=== PATIENT | male | born 1945 | race Caucasian/White ===

== ENCOUNTER 2016-08-12 05:41 | Observation (INO) | payer OTHER, MEDICARE ==
[2016-07-16 11:56] VITALS: BMI 28.2
[2016-08-12] MEDS ORDERED: REMIFENTANIL HCL 2,000 MCG VIAL IV ONE (06:56)
[2016-08-12] MEDS ORDERED: LABETALOL 20 MG/4 ML SYRINGE IV PRN (06:57)
[2016-08-12] MEDS ORDERED: HYDROmorphone 1 MG INJECTION IV PRN ×3 (06:57→10:37)
[2016-08-12] MEDS ORDERED: hydrALAZINE 20 MG/ML VIAL IV PRN (06:57)
[2016-08-12] MEDS ORDERED: ONDANSETRON HCL 4 MG/2 ML VIAL IV PRN (06:57)
[2016-08-12] MEDS ORDERED: ONDANSETRON HCL 4 MG ODT TAB PO PRN (06:57)
[2016-08-12] MEDS ORDERED: MEPERIDINE 25 MG/ML TUBEX IV PRN (06:57)
[2016-08-12] MEDS ORDERED: FENTANYL 100 MCG/2 ML VIAL IV PRN (06:57)
[2016-08-12] MEDS ORDERED: PROMETHAZINE 25 MG/ML VIAL IV PRN (06:57)
[2016-08-12] MEDS ORDERED: CEFAZOLIN 1 GM VIAL ONE (06:59)
--- NOTE | 2016-08-12 06:59 | SC.ANESPOS ---
Post-Anesthesia Note LOC: [facility] Post-Anesthesia Assessment: Awake, Returned to Baseline, Hemodynamically Stable , Pain Control Adequate Phase I & II Recovery Complete: Yes Apparent Anesthesia Complication: No : N - Vital Signs Blood Pressure: 106/76 Pulse: 82 Resp Rate: 18 O2 Sat: 95 Temp: 97.8 F
--- NOTE | 2016-08-12 07:00 | HIM.ANES ---
Anesthesia Evaluation & Plan Diagnoses: SPINAL STENOSIS, CERVICAL REGION (08/12/16) RADICULOPATHY, CERVICAL REGION (08/12/16) Consented Procedure: CERVICAL 4-5,5-6,6-7 WITH FUSION - Focused Review of Systems Cardiac History: Yes: Hx Cardiac Disorders, Hx Abnormal Cholesterol/ Hyperlipidemia HEENT: Yes: Hx Vision Problem (wears glasses), Other HEENT Problems Respiratory: Yes: Hx Snoring No: Hx Pneumonia Gastrointestinal: Yes: Hx Gastroesophageal Reflux Disease (rare since weight loss/controlled), Hx Gastrointestinal Disorders, Hx Diverticulosis, Hx Colonoscopy (07/16/2016 [facility]) Neurological/Musculoskeletal: Yes: Hx Back Pain (NECK), Hx Numbness, Tingling, Weakness in Arms & Legs (left arm from neck issues), Hx Neurological Disorders Other Neurological Problems: CERVICALGIA Psychological: Yes Hx Depression (RESOLVED), No Hx Mental/Emotional Disorders Endocrine: Yes: Hx Non-Insulin Dependent Diabetes Blood/Autoimmune: No: Hx Blood Transfusions, Hx AIDS, Hx Hepatitis (type) Smoking Status: Former smoker Surgical History: Yes: Knee (compound fx staple to knee as a child) Other Surgical History: PROSTATECTOMY 02/02/2003, SCAR TISSUE REMOVED FROM URETHRA 02/23/2004, - Focused Physical Exam NPO since: 08/11/16 2 Mallampati: Class III Thyromental Distance: Greater than 3 Neck: Limited Range of Motion Dental: Normal - no significant findings Cardiovascular/Chest: Normal Respiratory: Lungs clear Any problems with anesthesia, including nausea and vomiting?: No Any relatives with a history of Malignant Hyperthermia?: No Beta Andrea given (if appropriate): N/A Does the patient have a history of Motion Sickness-: No Other: Allergies Allergy/AdvReac Type Severity Reaction Status Date / Time No Known Allergies Allergy Verified 08/12/16 06:35 Home Medications Medication Instructions Recorded Last Taken Type Aspirin [Aspirin EC] 81 mg PO DAILY 07/15/16 08/05/16 History Dapagliflozin Propanediol [Farxiga] 10 mg PO DAILY 07/15/16 08/11/16 06:30 History Acetaminophen [Arthritis Pain] 650 mg PO Q4-6H PRN 07/18/16 08/09/16 History Atorvastatin Calcium [Lipitor] 10 mg PO DAILY 07/18/16 08/11/16 06:30 History Ibuprofen Tablet [Advil] 400 mg PO Q6-8H PRN 07/18/16 07/29/16 History Height and Weight Patient's height 5 ft 6 in Patient's weight 175 lb BMI 28.2 Vital Signs Temperature 97.8 F 08/12/16 06:59 Pulse Rate 82 08/12/16 06:59 Respiratory Rate 18 08/12/16 06:59 Blood Pressure 106/76 08/12/16 06:59 Pulse Oxygen Saturation 95 08/12/16 06:59 - Anesthetic Plan Anesthesia Type: General ASA Class: 3 -: I have examined this patient and reviewed the medical record. The patient has been assessed prior to anesthesia. Risks and benefits of anesthesia and anesthetic technique options have been discussed and all questions answered. The patient accepts the risk and desires me to proceed with the planned anesthetic.
[2016-08-12] MEDS ORDERED: TRIAMCINOLONE 40 MG/ML VIAL ONE (07:05)
[2016-08-12] MEDS ORDERED: Aluminum;Magnesium;Simethicone 30 ML UDC PO PRN (10:37)
[2016-08-12] MEDS ORDERED: MAGNESIUM HYDROXIDE 30 ML BOTTLE PO PRN (10:37)
[2016-08-12] MEDS ORDERED: DIPHENHYDRAMINE 25 MG CAP PO PRN (10:37)
[2016-08-12] MEDS ORDERED: DIPHENHYDRAMINE 50 MG/ML VIAL IV PRN (10:37)
[2016-08-12] MEDS ORDERED: SODIUM CHLORIDE 0.9% 3 ML FLUSH FLUSH PRN (10:37)
--- NOTE | 2016-08-12 10:38 | HIMOPRPT ---
DATE OF PROCEDURE: 08/12/16 PREOPERATIVE DIAGNOSIS: 1- Cervical degenerative disc disease C4-5, C5-6, C6-7 2- bilateral Upper extremity radicular pain POSTOPERATIVE DIAGNOSIS: 1- Cervical degenerative disc disease C4-5, C5-6, C6-7 2- bilateral Upper extremity radicular pain PROCEDURE PERFORMED: 1. Anterior cervical diskectomy, interbody arthrodesis C4-5 2. Anterior cervical diskectomy, interbody arthrodesis C5-6 3. Anterior cervical diskectomy, interbody arthrodesis C6-7 4. Anterior instrumentation C4-C7 5- Placement of interbody cage C4-5 . 6. Placement of interbody cage C5-6 7. Placement of interbody cage C6-7 SURGEON: Jermaine Jackman MD. KILN CHARGER: LUNA Spence] ANESTHESIA: General endotracheal Anesthesia. IV FLUIDS: Crystalloids ESTIMATED BLOOD LOSS: Minimal SPECIMENS: C4-5, C5-6, C6-7 disk. COMPLICATIONS: None. IMPLANTS: 1- Medtronic 8 hole cervical locking plate 2- Locking screws size 16 3- interbody cage 5 mm in height at C4-5, C5-6 and 6 mm height at C6-7 BRIEF HISTORY: LOVE MAYBERRY is a 71 year-old male patient . Patient had complaints of axial neck pain and bilateral upper extremity radicular pain. Patient had MRI evidence of cervical degenerative disc disease C4-5, C5-6, C6-7 with canal and foraminal stenosis . Patient had tried and failed conservative treatment including anti-inflammatory medication, activity modification, physical therapy, chiropractic treatment, cervical epidural steroid injection. Patient had difficulty in activities of daily living. Failing conservative treatment patient indicated the desire to proceed with surgical intervention. It was explained that infection, bleeding and were risks that accompanied any invasive procedure and that paralysis is a possible complication of any spine surgery. It was explained to the patient that other risks, including but not limited to seroma, hematoma, artery or vein injury, nerve damage, pain, weakness, numbness, tingling, or bladder dysfunction, incontinence, spinal fluid leak, nonunion, malunion, implant failure, loss of fixation, painful hardware, persistent symptoms, adjacent segment instability, adjacent segment degeneration, need for further surgery, sore throat, hoarseness, difficulty swallowing, Abby's syndrome, esophageal perforation, Tracheal injury, urine to retract infection, deep venous thrombosis, pulmonary embolism, pneumonia, ileus, ulcers, stroke, heartattack, and among others. It was explained that if he the patient had any reservation about any of these potential complications are if the risk of any of these complications occurring was unacceptable the patient should not undergo the procedure. Because he expressed understanding and chose to proceed as planned, the patient was taken to the operating room where the above listed procedure was performed. The patient volunteered an informed consent. The patient was seen on the day of surgery in the preop holding area. Surgical site was marked. The patient was then wheeled back into the operating room. DESCRIPTION OF THE PROCEDURE: The patient was seen and identified in the preop holding area. The surgical region was confirmed with the patient and initialed on the skin by the surgeon. The patient was then brought back to the operating room. The patient was transferred to the OSI flat table in the supine position and while still awake. The patient was positioned in a comfortable position. Patient then underwent induction of general endotracheal anesthesia without complication. Proper time out was performed confirming the identity of the patient and the planned procedure. His head and neck was maintained in excellent alignment during placement of endotracheal tube which was then stabilized.[A Cano catheter was placed as were sequential compression devices on both lower extremities, all of which were continued for the duration of the procedure. A well-padded bump was placed behind the shoulders to allow for very gentle cervical extension and optimal exposure to the anterior aspect of the neck. Shoulders were taped down to allow for better visualization of the cervical area . Intraoperative neurophysiologic monitoring was also employed for the duration of the procedure and monitoring leads were also placed. The anterior aspect of the neck was shaved smooth with clippers and cleanse thoroughly with alcohol. The surgical region was sealed off with plastic drapes. C-arm was brought in to identify the approximate surgical region,which was marked on the skin with a pen. The area was then prepped and draped in standard sterile fashion. The patient received 2 g of Ancef intravenously immediately preoperatively and within 30 min. of skin incision. We utilized a standard anterior approach to the cervical spine from a left- sided approach. A transverse incision was made in the skin to left of the midline. Bovie cautery was used for additional dissection and hemostasis through the subcutaneous tissue. The platysma was identified, mobilized, and then transected in line with the skin incision. Blunt dissection was then continued down to the deeper fascial layers. Each of these layers was first mobilized bluntly and then retracted carefully. The strap muscles, trachea, pharynx and esophagus were retracted towards midline, and the vascular structures retracted laterally. blunt dissection was then continued down to the prevertebral fascia exposing the anterior longitudinal ligament. A lateral C-arm image was then obtained to confirm the surgical level and the level was identified as C4-5. The longus coli muscles were elevated and mobilized bilaterally. Blunt self retaining retractors were then placed. Next we proceeded with the anterior discectomy and interbody arthrodesis for decompression of the canal at C4-5 . There was significant degeneration of the disc. The remaining portions of the disc were mobilized and resected in a piecemeal fashion using a combination of curettes, rongeurs and a high-speed bur. The disc was excised and osteophytes were resected laterally to the uncovertebral joints. This was also taken back to and through the annulus and posterior longitudinal ligament. The dura was identified and protected. No dural tears were encountered at any time during the procedure. Additional time was spent taking down some of the posterior osteophytes and particularly along the inferior aspect of the endplate of C4 and superior endplate of C5 . An angled curet was also used to undercut the posterior aspect of the vertebral bodies to allow for adequate decompression. Kerrison rongeur was also used for resection and some decompression of the foramina. The area was checked with a small narrow folk to ensure adequate decompression. The disc was irrigated on multiple occasions with copious amount of sterile normal saline. Epidural bleeding was managed with FloSeal. Next we placed Trenton pins at C4-C5 .Next we prepared for anterior interbody arthrodesis at C4-5 . The end plates of C4 and C5 were denuded of cartilage and exposing bleeding bone. We sized for a 5 millimeter size spacer. The center portion of this cage was packed with portions of local bone autograft. The cage was tamped into place gently. Final positioning was checked with lateral views on C-arm and felt to be satisfactory. The Trenton pins were then removed. Next we proceeded with the anterior discectomy and interbody arthrodesis for decompression of the canal at C5-6 . There was significant degeneration of the disc. The remaining portions of the disc were mobilized and resected in a piecemeal fashion using a combination of curettes, rongeurs and a high-speed bur. The disc was excised and osteophytes were resected laterally to the uncovertebral joints. This was also taken back to and through the annulus and posterior longitudinal ligament. The dura was identified and protected. No dural tears were encountered at any time during the procedure. Additional time was spent taking down some of the posterior osteophytes and particularly along the inferior aspect of the endplate of C5 and superior endplate of C6 . An angled curet was also used to undercut the posterior aspect of the vertebral bodies to allow for adequate decompression. Kerrison rongeur was also used for resection and some decompression of the foramina. The area was checked with a small narrow folk to ensure adequate decompression. The disc was irrigated on multiple occasions with copious amount of sterile normal saline. Epidural bleeding was managed with FloSeal. Next we placed Trenton pins at C5-6 .Next we prepared for anterior interbody arthrodesis at C5-6 . The end plates of C5 and C6 were denuded of cartilage and exposing bleeding bone. We sized for a 5 millimeter size spacer. The center portion of this cage was packed with portions of local bone autograft. The cage was tamped into place gently. Final positioning was checked with lateral views on C-arm and felt to besatisfactory. The Trenton pins were then removed. We then proceeded with anterior cervical diskectomy and interbody arthrodesis in a similar fashion at C6-7. At C6-7 we placed a size 6 mm interbody cage. Next we proceeded with the application of anterior instrumentation at C4-C7 . We used a [employer] 8 hole plate. This was aligned on the anterior aspect of the cervical spine. This was then affixed with 4 screws. All the screws had excellent purchase and then were tightened to the final torque beyond the capturing. Orthogonal views were obtained on Jacquelin and overall alignment and fixation were felt to be satisfactory. The wounds space was irrigated for a final time. A 1/8 inch Hemovac drain was placed deep within the wound space. We then prepared the wound for wound closure. The platysma fascia was reapproximated with Vicryl sutures as was the subcutaneous tissue. A Monocryl suture was used for the skin. Steri-Strips and sterile dressing was applied. Disposition: The patient was then transferred to his hospital bed in the supine position. The patient was awakened and extubated without complication. Patient was placed in cervical arthrosis. Upon awakening patient was able to demonstrate broad smoker function in the upper and lower extremities. Patient was then transferred to the postanesthesia care unit awake and in stable condition. No immediate complications were noted.
[2016-08-12] MEDS ORDERED: DEXTROSE 25 GM/50 ML PFS IV PRN (10:40)
[2016-08-12] MEDS ORDERED: GLUCOSE (ORAL GEL) 15 GM TUBE PO PRN (10:40)
[2016-08-12] MEDS ORDERED: GLUCAGON 1 MG VIAL SQ PRN (10:40)
[2016-08-12] MEDS ORDERED: FENTANYL 100 MCG/2 ML VIAL ONE (10:45)
[2016-08-12] MEDS: FENTANYL 100 MCG/2 ML VIAL IV PRN ×2 (10:47→11:04)
[2016-08-12] MEDS ORDERED: NALOXONE 0.4 MG/ML AMPULE IV SCH (11:00)
[2016-08-12] MEDS ORDERED: Pharmacy Discontinue All Previous Acetaminophen Orders SCH (11:00)
[2016-08-12] MEDS ORDERED: HYDROmorphone 1 MG INJECTION ONE (11:11)
[2016-08-12] MEDS: HYDROmorphone 1 MG INJECTION IV PRN ×2 (11:15→11:33)
[2016-08-12] MEDS ORDERED: LABETALOL 5 MG/ML MDV IV ONE (11:28)
[2016-08-12] MEDS ORDERED: EPHEDrine 50 MG/ML VIAL IM ONE (11:28)
[2016-08-12] MEDS ORDERED: FENTANYL 100 MCG/2 ML VIAL IV ONE (11:28)
[2016-08-12] MEDS ORDERED: SUCCINYLCHOLINE 20 MG/1 ML INJ 10 ML MDV IV ONE (11:28)
[2016-08-12] MEDS ORDERED: LIDOCAINE 100 MG PFS IV ONE (11:28)
[2016-08-12] MEDS ORDERED: METOCLOPRAMIDE 10 MG/2 ML VIAL IV ONE (11:28)
[2016-08-12] MEDS ORDERED: DEXAMETHASONE 4 MG/ML VIAL IV ONE (11:28)
[2016-08-12] MEDS ORDERED: ONDANSETRON HCL 4 MG/2 ML VIAL IV ONE (11:28)
[2016-08-12] MEDS ORDERED: hydrALAZINE 20 MG/ML VIAL IM ONE (11:28)
[2016-08-12] MEDS ORDERED: PROPOFOL 200 MG/20 ML VIAL IV ONE (11:28)
[2016-08-12] MEDS ORDERED: MIDAZOLAM 2 MG/2 ML VIAL IV ONE (11:28)
[2016-08-12] MEDS ORDERED: VITAMINS, MULTIPLE CAP PO SCH (12:00)
[2016-08-12] MEDS: REGULAR INSULIN 100 UNITS/ML - 3 ML VIAL SQ SCH ×3 (12:52→21:05)
[2016-08-12] MEDS: CALCIUM CARBONATE + VITAMIN D 500 MG TAB PO SCH ×2 (12:53→18:06)
[2016-08-12] MEDS: ACETAMINOPHEN 325 MG/TAB TABLET PO SCH ×3 (12:53→23:00)
[2016-08-12] MEDS: ONDANSETRON HCL 4 MG/2 ML VIAL IV SCH ×3 (13:23→23:01)
[2016-08-12] MEDS: Cefazolin 2gm/50 ml D5W 2 GM/50 ML RTU IV SCH ×2 (13:25→20:14)
[2016-08-12] MEDS: OXYCODONE HCL 5 MG TABLET PO SCH ×3 (13:31→23:00)
[2016-08-12] MEDS ORDERED: Vaccine Screening Complete SCH (16:00)
[2016-08-12] MEDS: SODIUM CHLORIDE 0.9% 3 ML FLUSH FLUSH SCH (18:07)
[2016-08-12] MEDS: OXYCODONE (OxyCONTIN) 10 MG TAB PO SCH (20:14)
[2016-08-12] MEDS ORDERED: DOCUSATE-SENNA CONCENTRATE TAB PO SCH (21:00)
[2016-08-13] MEDS: Cefazolin 2gm/50 ml D5W 2 GM/50 ML RTU IV SCH (03:21)
[2016-08-13] MEDS: OXYCODONE HCL 5 MG TABLET PO SCH ×3 (03:21→09:38)
[2016-08-13] MEDS: ONDANSETRON HCL 4 MG/2 ML VIAL IV SCH (06:00)
[2016-08-13] MEDS: SODIUM CHLORIDE 0.9% 3 ML FLUSH FLUSH SCH (06:01)
[2016-08-13] MEDS: ACETAMINOPHEN 325 MG/TAB TABLET PO SCH (06:01)
[2016-08-13] MEDS: REGULAR INSULIN 100 UNITS/ML - 3 ML VIAL SQ SCH (06:05)
[2016-08-13 06:20] VITALS: BP 142/97; PULSE 86; TEMP 98.2
[2016-08-13] MEDS ORDERED: DAPAGLIFLOZIN PROPANEDIOL 5 MG PO SCH (07:00)
[2016-08-13 07:20] LABS: MPV 7.9 fL (7.4-10.4)
[2016-08-13 07:40] LABS: BLOOD UREA NITROGEN 19 MG/DL (9-20); CALCIUM 9.8 MG/DL (8.4-10.2); CALCULATED OSMOLALITY 275 MOs/Kg (270-290); GLUCOSE 133 MG/DL (70-99); SODIUM LEVEL 141 mEq/L (137-146)
[2016-08-13 08:16] LABS: CHLORIDE 104 mEq/L (98-107)
[2016-08-13] MEDS ORDERED: ATORVASTATIN 10 MG TAB PO SCH (09:00)
--- NOTE | 2016-08-13 09:21 | PCM.ORTHBL ---
- Subjective Post Op Day: 1 Daily Assessment - Patient: Reports: No new complaints, Awake Alert Oriented x4 , Feels better, Tolerating Regular Diet, Voiding without difficulty, Afebrile, Ambulating with Physical Therapist. Denies: Hoarseness of voice, Difficulty Swallowing (improved since yesterday), Shortness of breath, Nausea, Vomiting - Objective / Physical Exam Vital Signs: Temperature: 98.2 F (08/13/16 06:00) HR: 86 (08/13/16 06:00)RR: 18 (08/13/16 06: 00) BP: 142/97 (08/13/16 06:00)Pulse Ox: 96 (08/13/16 06:00) General: Alert, Oriented x3, Cooperative, No acute distress, Well appearing Musculoskeletal / Extremities: 2 plus Radial Pulse, 2 plus Dorsalis Pedis Pulse , Dressing Clean/Dry/Intact, Other (Good fabricator artificial breast strength, equal bilaterally) Neurological: Positive Sensation First Dorsal Web Space, Sensation to light touch intact (UE and LE), Extensor Hallicus Longus Intact, Flexor Hallicus Longus Intact, Dorsiflexion Intact, Plantarflexion Intact Laboratory/Diagnostics Reviewed: 08/13/16 06:56 08/13/16 06:56 - Assessment and Plan (1) Degenerative disc disease, cervical Acute M50.30 - OTHER CERVICAL DISC DEGENERATION, UNSP CERVICAL REGION Present on Admission: Yes Plan: POD#1 s/p ACDF C4-C7 PT/WBAT Continue cervical collar, ok to loosen while in bed Continue pain management D/c plan for home
[2016-08-13] MEDS: OXYCODONE (OxyCONTIN) 10 MG TAB PO SCH (09:38)
--- NOTE | 2016-08-13 10:05 | PCM.DCS92 ---
- Final/Secondary Discharge Diagnosis (1) Degenerative disc disease, cervical Acute M50.30 - OTHER CERVICAL DISC DEGENERATION, UNSP CERVICAL REGION Present on Admission: Yes Discharge Disposition: Home Discharge Condition: Stable Cognitive Discharge Status: Unimpaired Physician Follow up/Referrals: Jermaine Jackman MD [Staff Physician] - Two Weeks New Prescriptions: Docusate-Senna Concentrate [Senokot S or Liberty Colace] 1 each PO QHS #30 tab Oxycodone Immediate Release [Oxycodone Immediate Release (OxyIR)] 5 mg PO Q4H PRN #40 tab PRN Reason: Pain Discharge Home Medication List Dapagliflozin Propanediol [Farxiga] 10 mg PO DAILY 07/15/16 [History Confirmed 08/12/16 Last Taken 08/11/16 06:30] Acetaminophen [Arthritis Pain] 650 mg PO Q4-6H PRN 07/18/16 [History Confirmed 08/12/16 Last Taken 08/09/16] Atorvastatin Calcium [Lipitor] 10 mg PO DAILY 07/18/16 [History Confirmed Last Taken 08/11/16 06:30] Docusate-Senna Concentrate [Senokot S or Liberty Colace] 1 each PO QHS #30 tab 05/20 [Rx Last Taken Unknown] Oxycodone Immediate Release [Oxycodone Immediate Release (OxyIR)] 5 mg PO Q4H PRN #40 tab 08/13/16 [Rx Last Taken Unknown] Additional Instructions: Instructions given: 08/13/16 Prescriptions (given at the office) Diet as tolerated Discharge Instructions: * Keep Bandage clean and dry * [Ambulate weight bearing as tolerated] * Take stool softener while taking pain medication Follow up in office as scheduled - Call office for any additional concerns. ) Follow up with Physical therapy as scheduled Diet at Discharge: As Tolerated, Regular Activity: Limited (Avoid rotation and flexion of the neck), No Heavy Lifting Call Office For: Worsening Symptoms, Wound is Draining Pus, Fever over 101 F, Fever over 100.5, Wound is Painful, Wound is Red, Weight Gain (see below), Pain Uncontrolled By Meds, Other (See Details) Discontinue use of:: Alcohol, All Illegal Substances, All Types of Tobacco - DC Summary Notes Hospital Course Note:: Discharge summary on patient named LOVE MAYBERRY admitted to [facility] on 08/12/16 by Jermaine Jackman MD. Date of discharge is [08/13/16]. Afebrile. Hospital course and surgery uneventful. Progressing with PT. Continue pain manageemnt. Avoid flexion and rotation of the neck. Continue cervical brace with ambulation. No aspirin for 72 hours post-op. No NSAIDs for 3 months post-op. No lifting greater than 3-5 pounds. Keep dressing clean and dry. OK to shower with dressing in place. To call office with any dressing concerns. Stable for discharge home. To follow-up with Dr. Jackman in 2 weeks or earlier as needed. Remove Transdermal Scopalamine patch if present: YES Medication Instructions: Take Stool Softener Activity as Tolerated: No (no lifting greater than 3-5 pounds. Avoid flexion/ rotation of neck) Weight Bearing: Full Current Dressing: [place] Dressing Care: Keep Wound Clean & Dry, Shower with Tegaderm Dsg, No Tub Baths, Do Not Change Dressing - Consults/Home Health Outpatient Consults: None - Physical Exam Vital Signs: Initial Vitals Temperature 97.8 F 08/12/16 06:32 Pulse Rate 82 08/12/16 06:32 Respiratory Rate 18 08/12/16 06:32 Blood Pressure 106/76 08/12/16 06:32 Pulse Oxygen Saturation 95 08/12/16 06:32 Last Vital Signs Temp 98.2 F 08/13/16 06:00 Pulse 86 08/13/16 06:00 Resp 18 08/13/16 06:00 BP 142/97 08/13/16 06:00 Pulse Ox 96 08/13/16 06:00 Constitutional: No apparent distress, Alert, Well appearing Oriented to: Time, Person, Place - HEENT Head: Normal - Musculoskeletal Back: Other (anterior neck dressing clean, dry, intact. Cervical collar in place) Extremities: Pedal Pulse, Radial Pulse - Neurologic Memory Impaired: Normal Motor Function: Normal Cranial Nerve: Normal Cerebellar: Normal Mood Description: Normal Thought: Coherent Perception: Normal
[2016-08-13] MEDS ORDERED: ONDANSETRON HCL 4 MG/2 ML VIAL IV PRN (10:37)
== END 2016-08-13 11:29 | disposition home or self-care (01) ==
LOC: SDC 05:41 → INTOOBSV 12:34 → MPS3 12:34
PROVIDERS: ADMIT Orthopaedic Surgery; ATTEND Orthopaedic Surgery
DX: M50.121 Cervical disc disorder at C4-C5 level with radiculopathy (principal); M48.02 Spinal stenosis, cervical region
CPT/HCPCS: 80048; 82962; 85027; 86850; 86900; 86901; 95861; 95937; 95938; 95939; 96372; 97116; 97161; 97165; G0237; G0378; J0330; J0360; J0690; J1100; J1170; J2001; J2250; J2405; J2765; J3010; J3301; J3490; L0172